=== PATIENT | female | born 1990 | race Two or more races ===

== ENCOUNTER 2017-07-30 11:26 | Inpatient (IN) | payer OTHER ==
--- NOTE | 2017-07-30 13:39 | OBPROG ---
OBG Labor Progress Note Assessment/Plan: Assessment: cat 1 fhr denies pain hydrated over night francesca today mvp 2.6 francesca 4.9 per us tech growth 53% consulted with dr Candy hickey on POC offer IOL today exam /- cephalic bailey bulb placement low dose pitocin 1mu q30 minutes and hold until bailey balloon falls out patient and family ok with POC Plan:low dose pitocin, bailey bulb, continuous monitoring arom when able 07/30/17 13:35 Subjective: States feeling movement. denies leaking, bleeding or cramping. Irregular contractions on the monitor today for nst. - SVE Dilation (cm): 1 Effacement (%): 80 Station: -2 - Physical Exam General Appearance: WD/WN, alert, no apparent distress Respiratory: chest non-tender, lungs clear, normal breath sounds Cardiac/Chest: regular rate, rhythm Abdomen: normal bowel sounds Extremities: Annabelle's sign (negative bilaterally) DTR- Lower Extremities: Knee (R): 1+, Knee (L): 1+ (no clonus) Skin: normal color, warm/dry Neuro/Psych: no motor/sensory deficits, alert, normal mood/affect, oriented x 3 Oxytocin Orders Assessment - Pre-Induction/Augmentation Assessment Gestational Age: 39 week(s) and 2 day(s) ICD10 Worksheet Patient Problems: Problems Problem Status Onset term oligohydramnios IOL Acute
[2017-07-30] MEDS ORDERED: TERBUTALINE SULFATE 1 MG/ML VIAL IV PRN (13:40)
[2017-07-30] MEDS ORDERED: OLIVE OIL 118 ML BTL MISC PRN (13:40)
[2017-07-30] MEDS ORDERED: EPSOM SALT 454 GM TP PRN (13:40)
[2017-07-30] MEDS ORDERED: OXYTOCIN/RINGERS LACTATE 1,000 ML IV PRN (13:40)
[2017-07-30] MEDS ORDERED: LR 1,000 ML IV PRN (13:40)
[2017-07-30] MEDS ORDERED: LIDOCAINE 1% 300 MG/30 ML SDV ONE (13:47)
[2017-07-30] MEDS ORDERED: MISOPROSTOL 200 MCG TAB ONE (13:48)
[2017-07-30] MEDS ORDERED: OLIVE OIL 118 ML BTL ONE (13:48)
[2017-07-30] MEDS ORDERED: OXYTOCIN 10 UNIT/ML VIAL ONE (13:48)
[2017-07-30] MEDS ORDERED: AMMONIA AROMATIC 1 EACH AMP IH ONE (13:48)
[2017-07-30] MEDS ORDERED: AMPICILLIN SODIUM 2 GM in NS 100 ML IV ONE (13:52)
[2017-07-30] MEDS ORDERED: OXYTOCIN 20 UNIT in LR 1,000 ML IV SCH (14:00)
[2017-07-30] MEDS ORDERED: OXYTOCIN/LR *STANDARD DOSE PROTOCOL IV SCH ×3 (14:00→14:30)
[2017-07-30] MEDS ORDERED: OXYTOCIN/LR *LOW DOSE PROTOCOL IV SCH ×2 (14:00)
[2017-07-30] MEDS ORDERED: OXYTOCIN/RINGERS LACTATE 500 ML IV SCH (14:00)
--- NOTE | 2017-07-30 14:32 | GHP ---
[f rep st] HISTORY AND PHYSICAL DATE OF ADMISSION: 07/30/2017 HISTORY OF PRESENT ILLNESS: The patient is a 26-year-old 3, term 0, A2, living 0 with an ED C of 08/04/2017 who is at 39-2/7 weeks, who comes to Labor and Delivery today on 07/30/2017 for an AF I, NST and growth ultrasound. Yesterday on 07/29/2017 patient came to the office with growth that was at 34 cm, NST that was react edy, MELODY that was 5. The patient has been routinely seeing [facility] since initial visit at 11 and 5 weeks on 01/18/2017. Today MELODY was 4.9, MVP was 2.6, growth was 53rd percentile. Plan of care was discussed with Dr. Candy Saunders and it was decided that we would offer an induction of labor today. The patient has accepted induction of labor. Exam was 1 cm, 80% effaced, -2 station, cephalic, soft , posterior so plan of care was Schneider bulb with low-dose Pitocin. The patient has stated hydrated a t home, positive movement. Denies leaking of fluid. Denies bleeding. MEDICAL HISTORY: Shortness of breath and a heart murmur. GYNECOLOGICAL HISTORY: Infertility, hysteroscopy, polypectomy, abnormal Pap smear. History of OCP use times 1-1/2 months 6 years ago. Pap has been within normal limits. SOCIAL HISTORY: Patient is to [employer]. Denies smoking, drug use, alcohol use during the pre gnancy. FAMILY HISTORY: Noncontributory. PREVIOUS HISTORY: Two previous losses one in 06/2013 an SAB and one in 02/2016 a TAB. Pr esent : No medical difficulties other than oligohydramnios. PHYSICAL ASSESSMENT: GENERAL: Patient is awake, alert, oriented x3. LUNGS: Clear bilaterally. A BDOMEN: Bowel sounds are positive in all 4 quadrants. EXTREMITIES: DTRs are 1+ bilaterally. Susan ns sign is negative. Clonus is negative. The patient is reva irregularly on the monitor, ca tegory 1. ABDOMEN: Soft on palpation. LABORATORY: Patient is O positive. Antibody negative. RPR is nonreactive. Rubella is positive. Hepatitis is negative. HIV is negative. Trio screen was negative. Urine culture is negative. Pat ient declined Pap, gonorrhea and chlamydia. AFP is negative. Verifi is negative. One hour GTT was within normal limits. PLAN OF CARE: Schneider bulb placement. Low-dose Pitocin until Schneider able to be discontinued and then Pitocin per protocol. Induction of labor for oligohydramnios. Consult with Dr. Candy Saunders on [facility] n of care. /[id number]/MODL
[2017-07-30 14:42] LABS: % IMMATURE GRANULYOCYTES 0.6 % (0.0-1.1); ABSOLUTE IMMATURE GRANULOCYTES 0.05 10^3/uL (0.00-0.10); ABSOLUTE NRBC COUNT 0.02 10^3/uL (0-0.01); ADD DIFF? NO; ADD MORPH? YES; ADD SCAN? NO; ATYPICAL LYMPHOCYTE FLAG 0 (0-99); FRAGMENT RBC FLAG 20 (0-99); HEMATOCRIT 28.6 % (38.0-47.0); HEMOGLOBIN 8.5 g/dL (12.6-16.3); LEFT SHIFT FLG 0 (0-99); LIPEMIA HEMOLYSIS FLAG 70 (0-99); MEAN CELL HEMOGLOBIN 19.9 pg (27.9-34.1); MEAN CELL HEMOGLOBIN CONCENTR. 29.7 g/dL (32.4-36.7); NRBC-AUTO% 0.2 % (0.0-0.2); PLATELET CLUMPS FLAG 0 (0-99); PLATELET COUNT 395 10^3/uL (150-400); RED BLOOD CELL COUNT 4.28 10^6/uL (4.18-5.33); RED CELL DISTRIBUTION WIDTH 17.8 % (11.5-15.2)
[2017-07-30 14:49] LABS: MEAN CELL VOLUME 66.8 fL (81.5-99.8)
[2017-07-30 15:32] LABS: HYPOCHROMIA 2+; MICROCYTES 2+; PLATELET ESTIMATE ADEQUATE (ADEQ); POLYCHROMASIA 1+; SCHISTOCYTES 1+
[2017-07-30 15:33] LABS: TARGET CELLS 1+
[2017-07-30] MEDS ORDERED: AMPICILLIN SODIUM 2 GM/10 ML VIAL ONE ×2 (17:04→17:13)
[2017-07-30] MEDS ORDERED: NS 100 ML BAG (MINI-BAG) IV ONE ×2 (17:05→17:13)
--- NOTE | 2017-07-30 17:10 | OBPROG ---
OBG Labor Progress Note Assessment/Plan: Assessment: cat 1 fhr pain with exam/ bailey bulb fell out exam 5100/-1 pitocin per protocol reva q3 Plan:pitocin per protocol arom when able/ patient verbalized understanding and agreement with POC 07/30/17 13:35 07/30/17 17:07 Subjective: Coping well with the contractions. Bailey bulb fell out with small amount of tractions. In great pain with this process. Exam /-1 cephalic on exam Objective: 07/30/17 14:10 Patient ABO/Rh O POSITIVE 07/30/17 14:10 - SVE Dilation (cm): 5 Effacement (%): 100 Station: -1 Oxytocin Orders Assessment - Pre-Induction/Augmentation Assessment Gestational Age: 39 week(s) and 2 day(s) ICD10 Worksheet Patient Problems: Problems Problem Status Onset term oligohydramnios IOL Acute
[2017-07-30] MEDS: AMPICILLIN SODIUM 1 GM in NS 100 ML IV SCH (20:33)
[2017-07-30] MEDS ORDERED: HYDROCORTISONE 0.5% CREAM TP PRN (21:16)
[2017-07-30] MEDS ORDERED: ACETAMINOPHEN 325 MG TAB PO PRN (21:16)
[2017-07-30] MEDS ORDERED: SIMETHICONE 80 MG TAB CHEW PO PRN (21:16)
[2017-07-30] MEDS ORDERED: HYDROCODONE/APAP 5/325 TAB PO PRN (21:16)
--- NOTE | 2017-07-30 21:20 | OBDEL ---
Info Type: Vaginal GBS+: Yes Antibiotic Used for + GBS: Ampicillin Number of Antibiotic Doses Given: 2 Indications for Delivery: Oligohydramnios Vaginal Delivery - Labor and Delivery Onset of Contractions Date: 07/30/17 Onset of Contractions Time: 13:00 Onset of Contractions Type: Induced Rupture of Membranes Date: 07/30/17 Rupture of Membranes Time: 18:56 Rupture of Membranes Type: Spontaneous Amniotic Fluid Color: Clear Dilation Complete Date: 07/30/17 Dilation Complete Time: 20:28 Placenta Delivery Date: 07/30/17 Placenta Delivery Time: 20:44 Total Hours of Labor: 7 Non-surgical Procedures: Amniotomy (of forebag clear fluid at 1937) Laceration: 2nd Degree Repair: 3-0, Vicryl Vaginal Sponge Count Correct: Yes Vaginal Needle Count Correct: Yes Vaginal Sweep Performed: No EBL: 350 Delivery Events: None, Nuchal Cord - Medications Labor Augmentation/Induction Methods Used: Pitocin, Schneider Bulb [place] Data [employer] Delivery Date: 07/30/17 Delivery Time: 20:36 CHASE: 08/04/17 Gestational Age: 39 week(s) and 2 day(s) Sex of Infant: Female Score (1 Min): 8 Score (5 Min): 9 ICD10 Worksheet Patient Problems: Problems Problem Status Onset term oligohydramnios IOL Acute
[2017-07-30] MEDS: IBUPROFEN 600 MG TAB PO PRN (21:45)
[2017-07-31] MEDS: IBUPROFEN 600 MG TAB PO PRN ×4 (04:02→22:36)
[2017-07-31] MEDS: AMPICILLIN SODIUM 1 GM in NS 100 ML IV SCH ×3 (09:02→13:12)
[2017-07-31] MEDS: DOCUSATE SODIUM 100 MG CAP PO PRN (10:08)
[2017-07-31] MEDS: IRON POLYSAC/IRON HEME 28 MG TAB PO SCH ×2 (10:08→22:36)
--- NOTE | 2017-07-31 13:15 | OBPP ---
Progress Note Assessment/Plan: Assessment: ppd# 1 s/p breast feeding anemia Plan: iron routine post care increase activity 07/31/17 13:13 07/31/17 13:14 Subjective: patient is doing well. pain is well controlled. normal lochia. denies headache and changes in vision. working on breast feeding. minimal ambulation. Objective: 07/31/17 06:30 Patient ABO/Rh O POSITIVE 07/30/17 14:10 Temp Pulse Resp BP Pulse Ox 36.8 C 70 16 97/50 L 07/31/17 08:32 07/31/17 08:32 07/31/17 08:32 07/31/17 08:32 Physical Exam - Physical Exam General Appearance: WD/WN, alert, no apparent distress Respiratory: chest non-tender, lungs clear, normal breath sounds Cardiac/Chest: normal peripheral pulses, regular rate, rhythm Abdomen: normal bowel sounds, non-tender Extremities: normal range of motion, non-tender, normal inspection, normal capillary refill Skin: normal color, warm/dry Neuro/Psych: no motor/sensory deficits, alert, normal mood/affect, oriented x 3
[2017-08-01] MEDS: IBUPROFEN 600 MG TAB PO PRN ×4 (05:35→23:33)
[2017-08-01] MEDS: IRON POLYSAC/IRON HEME 28 MG TAB PO SCH ×2 (11:09→22:38)
[2017-08-01] MEDS: DOCUSATE SODIUM 100 MG CAP PO PRN (11:09)
--- NOTE | 2017-08-01 11:16 | OBPP ---
Progress Note Assessment/Plan: Assessment: well nipples intact soothing of baby discussed ff@u scant rubra lochia perineum approximated voiding with out difficulty/ pericare pain management, tub, lidocaine spray, ambulation, to assist with pain relief Plan:p day 2 expectant management, anemia, pain relief, ambulation. 07/30/17 13:35 07/30/17 17:07 08/01/17 11:13 Subjective: Complaint of pain . Wanting to stay another day for pain relief assistance. Objective: 07/31/17 06:30 Patient ABO/Rh O POSITIVE 07/30/17 14:10 Temp Pulse Resp BP Pulse Ox 36.2 C 65 20 100/63 08/01/17 08:00 08/01/17 08:00 08/01/17 08:00 08/01/17 08:00 Uterine Position/Fundal Height: At Umbilicus Uterine Tone: Firm Physical Exam - Physical Exam General Appearance: WD/WN, alert, no apparent distress Abdomen: other (scant rubra lochia/ ff@u/ perineum approximated minimal swelling ) Extremities: normal range of motion, Annabelle's sign (negative bilaterlly) DTR- Lower Extremities: Knee (R): 1+, Knee (L): 1+ (no clonus) Skin: normal color, warm/dry Neuro/Psych: no motor/sensory deficits, alert, normal mood/affect, oriented x 3
[2017-08-02] MEDS: IBUPROFEN 600 MG TAB PO PRN ×2 (05:47→11:30)
[2017-08-02 08:39] VITALS: BP 87/60; PULSE 78; RESP 16; TEMP 98; O2SAT 96
[2017-08-02] MEDS: IRON POLYSAC/IRON HEME 28 MG TAB PO SCH (11:30)
[2017-08-02] MEDS: DOCUSATE SODIUM 100 MG CAP PO PRN (11:30)
--- NOTE | 2017-08-02 11:47 | OBPP ---
Progress Note Assessment/Plan: Assessment: ppd# 3 s/p breast feeding anemia Plan: iron routine post care discharge precautions 08/02/17 11:44 Subjective/ Course: 08/02/17 11:45 patient is doing well. pain is well controlled. working on breast feeding. normal lochia. denies headache and changes in vision. voiding without difficulty. no issues. Objective: 07/31/17 06:30 Patient ABO/Rh O POSITIVE 07/30/17 14:10 Temp Pulse Resp BP Pulse Ox 36.6 C 78 16 87/60 L 96 08/02/17 08:00 08/02/17 08:00 08/02/17 08:00 08/02/17 08:00 08/02/17 08:00 Physical Exam - Physical Exam Neck: non-tender, full range of motion Respiratory: chest non-tender, lungs clear, normal breath sounds Cardiac/Chest: normal peripheral pulses, regular rate, rhythm Abdomen: normal bowel sounds, non-tender, other (fundus firm and non tender) Extremities: normal range of motion, non-tender, normal inspection, normal capillary refill Skin: normal color, warm/dry Neuro/Psych: no motor/sensory deficits, alert, normal mood/affect, oriented x 3
--- NOTE | 2017-08-02 11:50 | OBGCSDC ---
General Delivery Information - General Info : 3 Para: 1 Admission Date: 07/30/17 Labs: Patient ABO/Rh O POSITIVE 07/30/17 14:10 Hct 24.4 % (38.0-47.0) L 07/31/17 06:30 - Hospital Course Antepartum: 08/02/17 11:49 had been working with JOSE. concieved spontaneously. oligohydramnios at 39 weeks. iol. bailey placed. Intrapartum: 08/02/17 11:50 bailey, pitocin, natural. second degree laceration. : 08/02/17 11:45 patient is doing well. pain is well controlled. working on breast feeding. normal lochia. denies headache and changes in vision. voiding without difficulty. no issues. Vaginal - Diagnosis Labor: Induced Rupture of Membranes Type: Spontaneous Amniotic Fluid Color: Clear Laceration: 2nd Degree Repair: 3-0, Vicryl Delivery Events: None, Nuchal Cord - Procedures Non-surgical Procedures: Amniotomy (of forebag clear fluid at 1937) - Delivery Non-surgical Procedures: Amniotomy (of forebag clear fluid at 1937) EBL: [address] [place] Data [employer] Delivery Date: 07/30/17 Delivery Time: 20:36 CHASE: 08/04/17 Gestational Age: 39 week(s) and 5 day(s) Sex of Infant: Female Weight (gm): 3046 kg Score (1 Min): 8 Score (5 Min): 9 Discharge Information - Discharge Information Condition: Good Instruction/Follow Up: Four Weeks, Six Weeks
== END 2017-08-02 12:05 | disposition home or self-care (01) | DRG 775 ==
LOC: FLD 11:26 → OBSVTOIN 15:10 → FOB 07-31 00:01
PROVIDERS: ADMIT Advanced Practice Midwife; ATTEND Obstetrics & Gynecology
DX: O41.03X0 Oligohydramnios, third trimester, not applicable or unspecified (principal); O70.1 Second degree perineal laceration during delivery; O99.820 Streptococcus B carrier state complicating pregnancy; O69.81X0 Labor and delivery complicated by cord around neck, without compression, not applicable or unspecified; Z3A.39 39 weeks gestation of pregnancy; Z37.0 Single live birth
CPT/HCPCS: J0290